=== PATIENT | female | born 1980 | race Two or more races ===

== ENCOUNTER 2021-10-26 12:21 | Emergency (ER) | payer MEDICAID, OTHER ==
[~2021-10-26] VITALS: Ht 167.6 cm; Wt 76.2 kg
[2021-10-26 13:40] VITALS: BP 177/84
[2021-10-26] MEDS ORDERED: cefTRIAXone SOD 1,000 MG VL IM ONE (14:00)
[2021-10-26] MEDS ORDERED: LEVO500T31 PO (14:19)
[2021-10-26] MEDS ORDERED: AZIT500T66 PO (14:19)
[2021-10-26] MEDS ORDERED: BENZ100C19 PO (14:19)
== END 2021-10-26 14:27 | disposition home or self-care (01) ==
LOC: ER 12:21
DX: J18.9 Pneumonia, unspecified organism (principal); J03.90 Acute tonsillitis, unspecified; E11.9 Type 2 diabetes mellitus without complications; I10 Essential (primary) hypertension
CPT/HCPCS: 71046; 96372; 99283; J0696

== ENCOUNTER 2024-01-28 08:21 | Emergency (ER) | payer MEDICAID ==
[~2024-01-28] VITALS: Ht 167.6 cm; Wt 82.4 kg
[~2024-01-28 08:21] MED LIST: AZIT500T66 PO; BENZ100C19 PO; LEVO500T31 PO
[2024-01-28 08:39] VITALS: BP 157/88; PULSE 74; RESP 16; TEMP 97.6; O2SAT 98
[2024-01-28] MEDS ORDERED: CEPH500C PO (08:41)
[2024-01-28] MEDS ORDERED: TRIA0.1O TOP (08:41)
== END 2024-01-28 08:45 | disposition home or self-care (01) ==
LOC: ER 08:21
DX: H00.011 Hordeolum externum right upper eyelid (principal); L20.9 Atopic dermatitis, unspecified; E11.9 Type 2 diabetes mellitus without complications; I10 Essential (primary) hypertension; Z79.899 Other long term (current) drug therapy

== ENCOUNTER 2024-08-24 10:04 | Emergency (ER) | payer MEDICAID ==
[~2024-08-24] VITALS: Ht 167.6 cm; Wt 81.0 kg
[~2024-08-24 10:04] MED LIST changes: +CEPH500C PO; +TRIA0.1O TOP
[2024-08-24] MEDS: KETOROLAC TROMETH 30 MG/ML 1ML VIAL IM ONE (11:46)
--- NOTE | 2024-08-24 11:51 | DVH ---
CLINICAL INDICATION: 45 lb weight landed on great toe TECHNIQUE: 3 XY L FOOT 3 VIEW XRAY Comparison: None FINDINGS/IMPRESSION: : Comminuted minimally displaced fracture of the distal phalanx of the 1st digit.
[2024-08-24] MEDS ORDERED: TRAM50TA2 PO (12:34)
--- NOTE | 2024-08-24 12:36 | ED.PDOC ---
Musculoskeletal HPI Comments This is a 44-year-old female presents for a possible fracture to the left great toe. Mechanism of injury: 45 lb dumbbell fell on her foot while she was at the gym Complained of sudden pain and now complains of pain with ambulation Denies numbness tingling Chief Complaint: Lower Extremity Time Seen by MD: 10:42 Primary Care Provider: [facility] Reviewed Notes: Nurses Notes, Medications, Allergies Allergies: Coded Allergies: NO KNOWN ALLERGIES (Unverified , 10/26/21) Home Meds Active Scripts Tramadol Hcl (Tramadol Hcl) 50 Mg Tab, 50 MG PO Q8HP PRN for 3 Days, #9 TAB 0 Refills Prov:MARIBEL WATTERS FURNITURE MOVER HELPER 08/24/24 Triamcinolone Acetonide (Triamcinolone Acetonide) 0.1 % Oin, 1 APPLIC TOP BID, #30 GRAMS Prov:CANDY HYATT 01/28/24 Cephalexin Monohydrate (Cephalexin) 500 Mg Cap, 1 CAP PO QID, #32 CAP Prov:CANDY HYATT 01/28/24 Benzonatate (Tessalon Perles) 100 Mg Cap, 100 MG PO TID, #30 CAP Prov:CANDY HYATT 10/26/21 Azithromycin (Azithromycin) 500 Mg Tab, 500 MG PO DAILY for 5 Days, #5 TAB Prov:CANDY HYATT 10/26/21 Levofloxacin (Levaquin) 500 Mg Tab, 500 MG PO DAILY, #10 TAB Prov:CANDY HYATT 10/26/21 Information Source: Patient Mode of Arrival: Ambulatory Past Medical History PAST MEDICAL HISTORY: DM, HTN Surgical History: Denies all surgeries SHIFT COMMANDER History: Denies all SHIFT COMMANDER Hx Family History Family History: Reviewed,noncontributory to illness Social History Smoker: Non-Smoker Alcohol: Denies ETOH Use Drugs: Denies Drug Use Lives In: Home All Other Systems: Reviewed and Negative (per hpi) Physical Exam General Appearance: No Apparent Distress, Normal HEENT: Normal ENT Inspection, Pharynx Normal, TMs Normal Neck: Full Range of Motion, Non-Tender, Normal, Normal Inspection Respiratory: Chest Non-Tender, Lungs Clear, No Accessory Muscle Use, No Respiratory Distress, Normal Breath Sounds Cardiovascular: No Edema, No JVD, No Murmur, No Gallop, Normal Peripheral Pulses, Regular Rate/Rhythm Breast Exam: Deferred Gastrointestinal: No Organomegaly, Non Tender, No Pulsatile Mass, Normal Bowel Sounds, Soft Genitalia: Deferred Pelvic: Deferred Rectal: Deferred Extremities: No calf tenderness, Normal capillary refill, Normal inspection, Normal range of motion, Non-tender, No pedal edema Musculoskeletal : Location: Left Extremity Location: Great Toe (no gross abnormality. nail intact. sensation intact. DP 2+) Apperance: Normal Neurologic: Alert, senior software systems engineer II-XII nml as Tested, No Motor Deficits, Normal Affect, Normal Mood, No Sensory Deficits Cerebellar Function: Normal Reflexes: Normal Skin: Dry, Normal Color, Warm Lymphatic: No Adenopathy Was a procedure done? Was a procedure done?: No Differential Diagnosis EXT Differential Diagnosis: Fracture, Sprain, Dislocation X-Ray, Labs, Meds, VS Vital Signs Date Time Temp Pulse Resp B/P (MAP) Pulse Ox O2 Delivery O2 Flow Rate FiO2 08/24/24 13:28 78 18 99 Room Air 08/24/24 13:28 97.9 78 18 140/82 (101) 99 97.9 08/24/24 10:28 97.9 78 18 140/82 (101) 99 Current Medications Medications (Trade) Dose Ordered Sig/Alejandro Route Start Time Stop Time Status Last Admin Ketorolac Tromethamine (Toradol Injection) 30 mg ONCE ONCE IM 08/24/24 11:30 08/24/24 11:31 DC 08/24/24 11:46 PATIENT: CHRISTINE MUHAMMADACCT: [id number]: [id number] : 1980 LOC: ER ROOM / BED: / AGE / SEX: 44 / F ADM STATUS: REG ER SERVICE 1121 ORDERING PHYSICIAN: MARIBEL WATTERS NP PROCEDURE(s): LFOOT - L FOOT 3 VIEW XRAY REASON: 45 lb weight landed on great toe ORDER NUMBER(s): [id number], ACCESSION NUMBER(s): [id number] CLINICAL INDICATION: 45 lb weight landed on great toe TECHNIQUE: 3 XY L FOOT 3 VIEW XRAY Comparison: None FINDINGS/IMPRESSION: : Comminuted minimally displaced fracture of the distal phalanx of the 1st digit. ATED BY: ARUN SIMON MD DICTATED DATE/TIME: 08/24/24 1148 SIGNED BY: ARUN SIMON MD SIGNED DATE/TIME: 08/24/24 1148 CC: X-Ray, Labs, Meds, VS Comment FINDINGS/IMPRESSION: : Comminuted minimally displaced fracture of the distal phalanx of the 1st digit. Posterior splint ordered. Neuro sensation intact on re-evaluation Crutches and crutch training provided Advised needs follow up with PCP with a 24-48 hours On reevaluation, patient had symptomatic improvement. Patient is stable for discharge at this time. External notes reviewed. Test results and diagnostic imaging interpreted. All diagnostic findings, discharge care, education and instructions provided Follow-up with PCP in 2 to 3 days Patient verbalized understanding and agreed to treatment plan Vital signs stable, afebrile, no acute distress noted Patient ambulatory with strong steady gait Advised to return precautions for any new or worsening symptoms, return to ER immediately for re-evaluation Patient is aware that the purpose of this visit was for an acute medical emergency requiring emergent stabilization. Chronic conditions, including malignancies have not been ruled out. Patient is instructed to follow up with PCP as directed and discharge instructions for continued care and workup. If unable to arrange follow-up, patient is to return to the emergency department for reassessment. Patient (parent or legal guardian if applicable) was given verbal and written discharge instructions and acknowledges understanding. Time of 1ST Reevaluation: 12:33 Reevaluation 1ST: Improved Patient Education/Counseling: Diagnosis, Treatment Family Education/Counseling: Diagnosis, Treatment Departure 1 Departure Time of Disposition: 12:32 Impression: Primary Impression: Toe fracture, left Qualified Codes: S92.425A - Nondisplaced fracture of distal phalanx of left great toe, initial encounter for closed fracture Disposition: HOME / SELF CARE / HOMELESS Condition: Stable e-Prescriptions Tramadol Hcl (Tramadol Hcl) 50 Mg Tab 50 MG PO Q8HP PRN for 3 Days, #9 TAB 0 Refills Prov: DUONGMARIBEL FURNITURE MOVER HELPER 08/24/24 Discharged With: Spouse Critical Care Note Critical Care Time?: No Stability Stability form required: No Heart Score Heart Score: Heart Score Response (Comments) Value History N/A 0 EKG N/A 0 Age N/A 0 Risk Factors N/A 0 Troponin N/A 0 Total 0 MARIBEL WATTERS NP Aug 24, 2024 12:36
[2024-08-24 13:28] VITALS: BP 140/82; PULSE 78; RESP 18; TEMP 97.9; O2SAT 99
== END 2024-08-24 13:30 | disposition home or self-care (01) ==
LOC: ER 10:04
DX: S92.422A Displaced fracture of distal phalanx of left great toe, initial encounter for closed fracture (principal); I10 Essential (primary) hypertension; E11.9 Type 2 diabetes mellitus without complications; Z79.899 Other long term (current) drug therapy; W20.8XXA Other cause of strike by thrown, projected or falling object, initial encounter; Y93.89 Activity, other specified; Y92.39 Other specified sports and athletic area as the place of occurrence of the external cause; Y99.8 Other external cause status
CPT/HCPCS: 29515; 73630; 96372; 99283; J1885